=== PATIENT | female | born 1980 | race Caucasian/White ===

== ENCOUNTER 2017-10-25 03:53 | Observation (INO) | payer OTHER ==
[~2017-10-25] VITALS: Ht 160 cm; Wt 55.8 kg
[2017-10-25] VITALS (10 sets, daily range): BP systolic 84–110; BP diastolic 50–70
[~2017-10-25 03:53] MED LIST: ACE3 PO; ASPI-1471 PO; IBU800 PO; MULT1CAP59 PO
[2017-10-25] MEDS ORDERED: ENOXAPARIN 40 MG/0.4ML SYR SC ONE (05:20)
[2017-10-25 07:20] LABS: PLATELET COUNT, AUTOMATED 271 K/uL (150-450)
[2017-10-25] MEDS ORDERED: NORMOSOL R SOLN(*) 1000 ML BAG 1,000 ML IV PRN (07:25)
[2017-10-25] MEDS ORDERED: MIDAZOLAM 2 MG/2 ML VIAL IVP PRN (07:25)
[2017-10-25] MEDS ORDERED: LIDOCAINE/SOD BICARB 8.4% SYR ID ONE (07:25)
[2017-10-25] MEDS ORDERED: PHENAZOPYRIDINE 200 MG TAB PO ONE (07:25)
[2017-10-25] MEDS ORDERED: cefOXitin/DEX(*) 2GM/50ML PREM 50 ML IVPB ONE (07:25)
[2017-10-25] MEDS ORDERED: FAMOTIDINE 20 MG TAB PO ONE (07:25)
[2017-10-25] MEDS ORDERED: PROPOFOL EMUL(*) 10MG/ML 20 ML 20 ML ONE (07:35)
[2017-10-25] MEDS ORDERED: fentaNYL CITR 250 MCG/5 ML AMP ONE (07:36)
[2017-10-25] MEDS ORDERED: LIDOCAINE MPF 1% 5 ML VIAL ONE (07:38)
[2017-10-25] MEDS ORDERED: ROPIVACAINE 0.2% 20 ML VIAL ONE (08:01)
[2017-10-25] MEDS ORDERED: ESTROGENS CONJ VAG CREAM 30 GM TUBE PV ONE (08:01)
[2017-10-25] MEDS ORDERED: VASOPRESSIN 20 UNIT/ML VIAL ONE (08:01)
[2017-10-25] MEDS ORDERED: NS(*) 0.9% 100 ML BAG 100 ML ONE (08:01)
--- NOTE | 2017-10-25 08:20 | History & Physical ---
History of Present Illness Age of Patient: 36 : 2 Para or TPAL: 2 Chief Complaint Uterine prolapse History of Present Illness Octavio has been having painful periods and painful sex for years. She was found to have uterine prolapse and other pelvic relaxation issues including rectocele and cystocele. She also gets significant PMS with her periods. She desires hysterectomy for complete resolution and repair of her pelvic relaxation issues. 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 Family History: FH: NH (myocardial infarction) FATHER Patient's mother is in good health MOTHER Med Rec Home Meds Reported Medications Multivitamin (MULTIVITAMINS) 1 Each Capsule, 1 EACH PO QDAY, CAPSULE 08/06/16 Aspirin (ASPIR 81) 81 Mg Tablet.dr, 81 MG PO QDAY, TAB 08/06/16 Review of Systems All Systems Reviewed/Normal: Yes, Except as Noted Other as per HPI Exam General Exam Vital Signs Vital Signs Date Time Temp Pulse Resp B/P (MAP) Pulse Ox O2 Delivery O2 Flow Rate FiO2 10/25/17 07:33 98.0 66 16 99/67 (78) 98 Room Air General Apperance: Alert/Awake/No Acute Distress Neuro: No Gross deficits Cardiovascular: Regular Rate and Rhythm Respiratory: No Respiratory Distress Musculoskeletal: No Weakness/Pain Extremities: No Cyanosis,Clubbing or Edema Integumentary: Skin Intact without Lesions or Rash Psychological: Alert & Oriented X3 Medical Decision Making Data Points Result Diagram: 10/25/17 0714 VTE Prophylasis: Adult Deep Vein Thrombosis/Pulmonary: No Assessment and Plan Problems: (1) Dyspareunia, female Assessment & Plan: Planning LAVH/BS/MMC and A&P repair. Risks and benefits reviewed and questions answered. (2) Dysmenorrhea (3) Incomplete uterine prolapse (4) Cystocele (5) Rectocele (6) May-Thurner syndrome EVAN ROSE MD Oct 25, 2017 08:20
[2017-10-25] MEDS ORDERED: ROCURONIUM BROM 10 MG/ML 5 ML ONE (08:30)
[2017-10-25] MEDS ORDERED: DEXAMETHASONE SOD 4 MG/ML VIAL ONE (08:39)
[2017-10-25] MEDS ORDERED: ONDANSETRON 4 MG/2 ML VIAL ONE (08:40)
[2017-10-25] MEDS ORDERED: KETOROLAC 30 MG/ML VIAL ONE (08:40)
[2017-10-25] MEDS ORDERED: KETAMINE HCL 200 MG/20 ML MDV ONE ×2 (08:41→15:28)
[2017-10-25] MEDS ORDERED: SUGAMMADEX SOD 200 MG/2 ML SDV ONE (09:03)
[2017-10-25] MEDS ORDERED: NS 0.9% IRRIGATION 1000ML PLCT IR ONE (10:25)
[2017-10-25] MEDS ORDERED: fentaNYL CITR 100 MCG/2 ML AMP ONE ×3 (10:27→12:19)
[2017-10-25] MEDS ORDERED: ZOLPIDEM TARTRATE 10 MG TAB PO PRN (11:05)
[2017-10-25] MEDS ORDERED: PROMETHAZINE 25 MG/ML 1 ML AMP IVP PRN (11:05)
[2017-10-25] MEDS ORDERED: ONDANSETRON 4 MG/2 ML VIAL IV PRN (11:05)
[2017-10-25] MEDS ORDERED: BELLADONNA ALK/OPIUM 60MG SUPP PR PRN (11:05)
[2017-10-25] MEDS ORDERED: SIMETHICONE 80 MG CHEW CHEW PRN (11:05)
[2017-10-25] MEDS ORDERED: ACETAMINOPHEN 325 MG TAB PO PRN (11:05)
--- NOTE | 2017-10-25 11:22 | Post Operative Note ---
Operative Note - [facility] Operative Day Date: Oct 25, 2017 Time: 11:11 Physicians Surgeon: Christine [place] Operator: Janel Anesthesia: GETA Diagnosis Pre-Op Diagnosis: Dysmenorrhea Uterine prolapse cystocele Rectocele Post-Op Diagnosis: same Procedure Findings: #[id number] Procedure(s): LAVH/BS/MMC A&P repair cysto IUD removal Specimen Removed:(Maybe N/A): uterus, tubes Complications: none Fluids Fluids: 1300 ml Estimated Blood Loss: 100 ml Dictated Date OP Note Dictated: Oct 25, 2017 Time OP Note Dictated: 11:12 Copies to: EVAN ROSE MD, TRAVIS MD Oct 25, 2017 11:22
[2017-10-25] MEDS ORDERED: PROMETHAZINE 25 MG/ML 1 ML AMP ONE (11:44)
[2017-10-25] MEDS ORDERED: MEPERIDINE 50 MG/ML SYR ONE (12:07)
[2017-10-25] MEDS: DLR(*) 1000 ML BAG 1,000 ML IV PRN ×2 (13:05→19:17)
[2017-10-25] MEDS: KETOROLAC 30 MG/ML VIAL IVP SCH ×2 (16:07→21:20)
--- NOTE | 2017-10-25 17:56 | OPERATIVE REPORT 1 ---
EVENT DATE: October 25, 2017 SURGEON: Yovanny King MD ANESTHESIOLOGIST: Eyad Aguilar MD ANESTHESIA: General endotracheal anesthesia. ADJUSTMENT CLERK: Edmar Islas DO PREOPERATIVE DIAGNOSES 1. Dysmenorrhea. 2. Incomplete uterine prolapse. 3. Cystocele. 4. Rectocele. 5. May-Thurner syndrome. 6. Dyspareunia. POSTOPERATIVE DIAGNOSES 1. Dysmenorrhea. 2. Incomplete uterine prolapse. 3. Cystocele. 4. Rectocele. 5. May-Thurner syndrome. 6. Dyspareunia. PROCEDURES PERFORMED 1. Laparoscopic-assisted vaginal hysterectomy. 2. Bilateral salpingectomy. 3. Modified Bansal culdoplasty. 4. Anterior colporrhaphy. 5. Posterior colporrhaphy. 6. Diagnostic cystoscopy. 7. Intrauterine device removal. ESTIMATED BLOOD LOSS 100 mL FLUIDS Crystalloid 1300 mL IV. URINE OUTPUT Not measured. DESCRIPTION OF PROCEDURE The patient was brought to the operating room with a working IV, placed in the dorsal supine position. She was placed under general endotracheal anesthesia and moved to the dorsal lithotomy position. She was prepped and draped in the usual sterile fashion. A weighted speculum was placed in the vagina, and cervix was grasped with a single-toothed tenaculum. It was carefully sounded to a depth of 8 cm. Cervix was carefully dilated to accommodate a size 8 DAIANA uterine manipulator. It was passed through the cervix into the uterus, bulb inflated and secured, and all other instruments were then removed. Legs were brought back to the supine position. Shi catheter was placed and allowed to dependent drain. Gloves were changed. We proceeded with laparoscopy by infiltrating the umbilicus with 0.2% Naropin. A 5 mm stab incision was made with an 11 blade scalpel. A Veress needle was passed through this incision into the abdomen while elevating the anterior abdominal wall until a pneumoperitoneum had been created to an intra-abdominal pressure of 20 mmHg. Veress needle was then removed. A 5 mm bladeless trocar was passed through the abdominal wall while stabilizing the abdominal wall under direct visualization with the scope. The abdomen and pelvis were surveyed. A slightly enlarged, boggy uterus, normal-appearing ovaries bilaterally were observed. Two additional 5 mm ports were placed in the right and left lower quadrants, and the patient was moved to the Trendelenburg position. Pressure was reduced to 15 mmHg, and we proceeded with the hysterectomy by grasping the left fallopian tube and putting it on medial stretch. It was dissected away from its pelvic attachment using the Gyrus device up to the utero-ovarian ligament. This was then cauterized and transected with the Gyrus device as well as the round ligament. The broad ligament was into anterior and posterior leaflets. The anterior leaflet followed anteriorly, creating a bladder flap in that location. The posterior peritoneum was dissected away from the uterine vasculature down to the uterosacral ligament. The vessels were cauterized along the border of the uterus and then transected cephalad with the Gyrus device. There was excellent hemostasis observed. Same procedure was followed on the contralateral side, also dissecting the fallopian tube away from its pelvic attachment, cauterizing and transecting the utero-ovarian and round ligaments, the broad ligament into anterior and posterior leaflets, and skeletonizing the uterine vascular. It was then cauterized and transected, and the uterus was blanching. The uterus was slightly irrigated. All instruments were then removed. The pneumoperitoneum was released. Instruments were secured to the patient's abdomen, and she was moved to the lithotomy position. The weighted speculum was placed in the vagina, exposing the cervix which was grasped with Martin clamps at 12 and 6 o'clock. It was put on stretch and circumferentially injected with a diluted Pitressin solution. Using the Bovie, a circumferential incision was made on the cervix, and the posterior cul- de-sac was entered sharply. A long-billed weighted speculum was inserted here. This exposed the uterosacral ligaments bilaterally, which were clamped, cut, and suture ligated with Vicryl suture ties and tagged for later identification. An anterior dissection was then performed by onion skinning the vaginal mucosa away from the cervix and entering the anterior dissection. Once in the anterior cul-de-sac, it was retracted with a right angle well away and exposing the cardinal ligaments. These were bilaterally clamped, cut, and suture ligated with Vicryl suture tie. The remaining vascular pedicle was isolated, clamped, and cut, and the uterus was removed and sent to Pathology. The remaining pedicle was suture ligated, and there was excellent hemostasis throughout. Therefore, modified Bansal culdoplasty was then performed by securing the uterosacral ligament to the ipsilateral vaginal mucosa and obliterating the posterior cul-de-sac by reefing along the posterior peritoneum and exiting out the posterior fourchette of the vagina. Running pursestring stitch of the parietal peritoneum was also placed. We turned attention then to the anterior colporrhaphy by infiltrating the defect beneath the bladder with a diluted Pitressin solution and making a linear incision along the length of the defect. Using tenotomy scissors, the vaginal mucosa was dissected away using sharp dissection on both sides. Once adequately dissected, a pursestring stitch was made to reduce the size of the defect, followed by Veronica plication stitches along its length to completely close in and have repaired the defect. Excess vaginal mucosa was trimmed away, and the entire vaginal cuff was then closed with 2-0 Vicryl in a running locking stitch. Uterosacral ligaments were secured in the midline. Attention was then turned to the posterior colporrhaphy , demarcating the defect and infiltrating with diluted Pitressin solution and local anesthetic at the perineum. A triangular wedge resection of the perineum was performed in order to perform a perineoplasty. A linear incision was made in the vaginal mucosa along the length of the defect. It was carefully dissected laterally using sharp dissection, followed by Veronica plication stitches along its length to reconstruct the endopelvic fascia in that location. A finger was inserted in the rectum, and specific repair was performed in order to ensure complete closure of the endopelvic fascia over the rectum. Gloves were then changed, and a slight amount of excess vaginal mucosa was trimmed away. The repair was performed with a 2-0 Vicryl in a running locking stitch along the length of the vaginal mucosa, and typical second- degree obstetrical repair was performed on the perineoplasty. There was an excellent result. No visible complications. There was one bleeder within the vagina which was secured with a [id number] stitch. Shi catheter was then removed, and diagnostic cystoscopy was performed. Both ureteral orifices were observed and found to have excellent urine jets. Therefore, the bladder was drained. The vagina was packed with a Kerlix sponge moistened with Premarin cream. The legs were brought back to the supine position. Gloves were , again, changed. We went back up to the abdomen and re-insufflated the abdomen , moved the patient in Trendelenburg position, and inspected the pelvis. There were no visible hematomas or complications or active bleeding from any of the vascular pedicles. Therefore, the pelvis was irrigated and suctioned dry. The pneumoperitoneum was suctioned out. All instruments were removed from the abdomen. Skin incisions were repaired by using a 4-0 Monocryl simple subdermal and covered with Dermabond skin adhesive. She tolerated the procedure well. Sponge, lap, needle, and instrument counts were all correct times three. JUAN J
[2017-10-25] MEDS: DOCUSATE CALCIUM 240 MG CAP PO SCH (21:20)
[2017-10-25] MEDS: FAMOTIDINE 20 MG TAB PO SCH (21:20)
[2017-10-26] MEDS: KETOROLAC 30 MG/ML VIAL IVP SCH (03:29)
[2017-10-26 03:32] VITALS: BP 84/56
[2017-10-26 06:14] LABS: PLATELET COUNT, AUTOMATED 212 K/uL (150-450)
[2017-10-26] MEDS: FAMOTIDINE 20 MG TAB PO SCH (08:19)
[2017-10-26] MEDS: DOCUSATE CALCIUM 240 MG CAP PO SCH (08:19)
[2017-10-26 08:20] VITALS: BP 90/60
[2017-10-26] MEDS ORDERED: INFLUENZA VIRUS VAC 0.5 ML SYR IM ONLY ONE (09:00)
[2017-10-26] MEDS ORDERED: IBUPROFEN 800 MG TAB PO PRN (09:00)
--- NOTE | 2017-10-26 10:06 | OB/GYN Progress Note ---
OB Subjective Progress Notes Subjective Doing well. Pain much better controlled today and has ambulated in the room. Tolerating PO intake well without nausea. Shi and packing removed. Has not voided spontaneously yet. GI: NEG Nausea : Voiding Well Pain: Mild OB Objective Physical Exam Vital Signs Date Time Temp Pulse Resp B/P (MAP) Pulse Ox O2 Delivery O2 Flow Rate FiO2 10/26/17 08:20 98.3 84 15 90/60 (70) 94 10/26/17 07:27 Room Air 10/25/17 14:00 1.0 Intake and Output 10/27/17 07:00 Output Total 400 ml Balance -400 ml Output Urine Total 400 ml General Appearance: Alert/Awake/No Acute Distress Neurological: No Gross deficits Cardiovascular: Normal Rhythm & Peripheral Pulses, Regular Rate and Rhythm Respiratory: No Respiratory Distress, Clear to Auscultation Abdomen: Soft, Non-Tender, Non-Distended, Bowel Sounds Present Incision: Clean, Dry, Intact, Dermabond Extremities: No Cyanosis,Clubbing or Edema Integumentary: Skin Intact without Lesions or Rash Psychological: Alert & Oriented X3, Appropriate Mood & Affect Result Diagram: 10/26/17 0600 Assessment and Plan Problems: (1) Dyspareunia, female (2) Dysmenorrhea (3) Incomplete uterine prolapse (4) Cystocele (5) Rectocele (6) May-Thurner syndrome (7) S/P laparoscopic hysterectomy Assessment & Plan: Reviewed precautions at home and instructions. Will make sure her bladder functions well today and plan home later. Call for bleeding or pain concerns or fever. F/U at 2 weeks in the office. EVAN ROSE MD Oct 26, 2017 10:06
[2017-10-26] MEDS ORDERED: PER PO (10:07)
[2017-10-26] MEDS ORDERED: IBUP800T37 PO (10:07)
--- NOTE | 2017-10-26 10:10 | Short(Outpt) Discharge Summary ---
Discharge Summary Reason for Hosp/Final Diag: (1) Dyspareunia, female (2) Dysmenorrhea (3) Incomplete uterine prolapse (4) Cystocele (5) Rectocele (6) May-Thurner syndrome Hospital Course & Plan: Continue baby ASA at home. Ambulate frequently. Discussed sx/sx of problems. (7) S/P laparoscopic hysterectomy Hospital Course & Plan: Reviewed precautions at home and instructions. Will make sure her bladder functions well today and plan home later. Call for bleeding or pain concerns or fever. F/U at 2 weeks in the office. Departure Discharge to: Home, Self Care Discharge Instructions Home Meds Active Scripts Oxycodone/Acetaminophen (OXYCODONE/ACETAMINOPHEN 5MG/325 MG) 5 Mg/325 Mg Tab, 1- 2 TAB PO Q4H Y for PAIN, #20 TAB 0 Refills Prov:YOVANNY KING MD 10/26/17 Reported Medications Multivitamin (MULTIVITAMINS) 1 Each Capsule, 1 EACH PO QDAY, CAPSULE 08/06/16 Aspirin (ASPIR 81) 81 Mg Tablet., 81 MG PO QDAY, TAB 08/06/16 Follow up Referrals: Neurosurgery SPECIAL ASSETS OFFICER - In Two Weeks @ [facility] with Yovanny King Md Diet: Regular Activity: As Tolerated Copies to: YOVANNY KING MD, TRAVIS MD Oct 26, 2017 10:10
[2017-10-26 12:30] VITALS: BP 94/69
[2017-10-26 13:10] VITALS: Ht 160 cm; Wt 55.8 kg
== END 2017-10-26 15:45 | disposition home or self-care (01) ==
LOC: OR 03:53 → PED 12:50 → INTOOBSV 12:50
PROVIDERS: ADMIT Obstetrics & Gynecology; ATTEND Obstetrics & Gynecology
DX: N94.6 Dysmenorrhea, unspecified (principal); N81.2 Incomplete uterovaginal prolapse; N81.10 Cystocele, unspecified; N81.6 Rectocele; N94.10 Unspecified dyspareunia
CPT/HCPCS: 36415; 58552; 84703; 85014; 85018; 85025; 88307; G0378; J0694; J1100; J1650; J1885; J2001; J2250; J2405; J2550; J2704; J2795; J3010; J3490; J7050